=== PATIENT | female | born 1995 | race Asian ===

== ENCOUNTER 2019-07-21 01:59 | Emergency (ER) | payer BC ==
[~2019-07-21] VITALS: Wt 75.0 kg
[2019-07-21 02:00] VITALS: TEMP 98.4
[2019-07-21 03:33] VITALS: BP 123/80; PULSE 71
[2019-07-21] MEDS ORDERED: CEPHALEXIN500 M1 PO (03:42)
== END 2019-07-21 03:45 | disposition home or self-care (01) ==
LOC: COL.ER 01:59
DX: S51.812A Laceration without foreign body of left forearm, initial encounter (principal); F10.129 Alcohol abuse with intoxication, unspecified; F32.9 Major depressive disorder, single episode, unspecified; F41.9 Anxiety disorder, unspecified; Z23 Encounter for immunization; X78.8XXA Intentional self-harm by other sharp object, initial encounter; Y92.009 Unspecified place in unspecified non-institutional (private) residence as the place of occurrence of the external cause

== ENCOUNTER 2020-06-03 12:00 | Emergency (ER) | payer BC ==
[~2020-06-03] VITALS: Ht 152.4 cm; Wt 77.3 kg
[~2020-06-03 12:00] MED LIST: CEPHALEXIN500 M1 PO
[2020-06-03 12:08] VITALS: BP 133/83; TEMP 98
[2020-06-03 13:14] VITALS: PULSE 83
== END 2020-06-03 13:14 | disposition home or self-care (01) ==
LOC: COL.ER 12:00
DX: S81.012A Laceration without foreign body, left knee, initial encounter (principal); W01.110A Fall on same level from slipping, tripping and stumbling with subsequent striking against sharp glass, initial encounter
CPT/HCPCS: L1846